=== PATIENT | female | born 1945 | race Caucasian/White ===

== ENCOUNTER 2019-08-29 11:50 | Outpatient (CLI) | payer MEDICARE, SELFPAY ==
--- NOTE | ~2019-08-29 | XR_ITS ---
EXAMINATION: [id number] DATE: 08/29/2019 12:18 INDICATION: Right chest pain. TECHNIQUE: A frontal view of the chest and 3 views of the right ribs were obtained. COMPARISON: Chest 2 views 12/24/2005 FINDINGS: The chest demonstrates clear lungs without pneumonia, pleural effusion, or pneumothorax. Th e heart size is normal. There is a total right shoulder arthroplasty. There is a suture anchor in rig ht humeral head. There are changes of anterior and posterior fusion procedures in lumbar spine. IMPRESSION: 1. No rib fracture. Reviewed, dictated and finalized at location A. IMPRESSION: 1. No rib fracture.
== END 2019-08-29 11:51 | disposition home or self-care (01) ==
LOC: ANHIMG 11:59
PROVIDERS: PCP Internal Medicine; Visit Provider Physician Assistant
DX: R07.81 Pleurodynia (principal)
CPT/HCPCS: 71101

== ENCOUNTER 2020-02-05 16:44 | Outpatient (CLI) | payer MEDICARE, SELFPAY ==
--- NOTE | ~2020-02-05 | MM_ITS ---
EXAMINATION: MM screening tegan BI w benita HISTORY: Screening mammogram TECHNIQUE: Craniocaudal and mediolateral oblique 3-D tomosynthesis images were obtained and synthetic 2-D images were generated. CAD analysis was submitted and interpreted. COMPARISON: 08/02/2018, 06/09/2017, 06/07/2016 bilateral digital screening mammogram examinations BREAST PARENCHYMAL COMPOSITION: There are scattered areas of fibroglandular density. FINDINGS: There is no evidence of suspicious mass, calcification, or architectural distortion to sugg est malignancy in either breast. There has been no suspicious interval change. IMPRESSION: 1. No mammographic evidence of malignancy. 2. Recommend routine screening mammography in one year. BI-RADS Category 1: Negative Reviewed, dictated and finalized at location B. 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
== END 2020-02-05 16:45 | disposition home or self-care (01) ==
LOC: ANHIMG 16:49
PROVIDERS: PCP Internal Medicine; Visit Provider Internal Medicine
DX: Z12.31 Encounter for screening mammogram for malignant neoplasm of breast (principal)
CPT/HCPCS: 77063; 77067

== ENCOUNTER 2021-03-18 16:31 | Outpatient (CLI) | payer MEDICARE, SELFPAY ==
--- NOTE | ~2021-03-18 | MM_ITS ---
EXAMINATION: MM screening tegan BI w benita HISTORY: Screening TECHNIQUE: Craniocaudal and mediolateral oblique 3-D tomosynthesis images were obtained and synthetic 2-D images were generated. CAD analysis was submitted and interpreted. COMPARISON: Comparison to multiple prior studies sequentially, with oldest reviewed study dated 06/04. BREAST PARENCHYMAL COMPOSITION: The breasts are heterogenously dense, which may obscure small masses FINDINGS: There is no evidence of suspicious mass, calcification, or architectural distortion to sugg est malignancy in either breast. There has been no suspicious interval change. IMPRESSION: 1. No mammographic evidence of malignancy. 2. Recommend routine screening mammography in one year. BI-RADS Category 1: Negative Reviewed, dictated and finalized at location A. ACUTE CARE
== END 2021-03-18 16:32 | disposition home or self-care (01) ==
LOC: ANHIMG 16:34
PROVIDERS: PCP Internal Medicine; Visit Provider Internal Medicine
DX: Z12.31 Encounter for screening mammogram for malignant neoplasm of breast (principal)
CPT/HCPCS: 77063; 77067

== ENCOUNTER 2022-05-18 14:12 | Outpatient (CLI) | payer MEDICARE, SELFPAY ==
--- NOTE | ~2022-05-18 | MM_ITS ---
EXAMINATION: MM screening tegan BI w benita HISTORY: Screening mammogram TECHNIQUE: Craniocaudal and mediolateral oblique 3-D tomosynthesis images were obtained and synthetic 2-D images were generated. CAD analysis was submitted and interpreted. COMPARISON: 03/18/2021, , 08/02/2018, 05/20/2017, 06/07/2016, 06/06/1999 bilateral screening ma mmogram examinations BREAST PARENCHYMAL COMPOSITION: There are scattered areas of fibroglandular density. FINDINGS: There is an approximately 4 x 5.8 mm circumscribed opacity in the anterior inner right [address] on craniocaudal projection. Diagnostic right mammogram and right breast ultrasound examination are recommended. Otherwise there is no evidence of suspicious mass, calcification, or architectural distortion to sug gest malignancy in either breast. There has been no other suspicious interval change. IMPRESSION: 1. 4 x 5.8 mm circumscribed opacity in the anterior inner right breast on craniocaudal view 2. Diagnostic right mammogram and right breast ultrasound examination are recommended BI-RADS Category 0: Incomplete: Needs additional imaging evaluation. Reviewed, dictated and finalized at location A. MANAGER IMPRESSION: 1. 4 x 5.8 mm circumscribed opacity in the anterior inner right breast on crani ocaudal view 2. Diagnostic right mammogram and right breast ultrasound examination are recom mended BI-RADS Category 0: Incomplete: Needs additional imaging evaluation.
== END 2022-05-18 14:13 | disposition home or self-care (01) ==
PROVIDERS: PCP Internal Medicine; Visit Provider Internal Medicine
DX: Z12.31 Encounter for screening mammogram for malignant neoplasm of breast (principal); R92.8 Other abnormal and inconclusive findings on diagnostic imaging of breast
CPT/HCPCS: 77063; 77067

== ENCOUNTER 2022-06-03 13:46 | Outpatient (CLI) | payer MEDICARE, SELFPAY ==
--- NOTE | ~2022-06-03 | MMUS_ITS ---
EXAMINATION: MM diagnostic tegan RT w benita, US breast RT limited HISTORY: 4 x 5 point millimeters circumscribed opacity in anterior inner right breast on craniocaudal screening view of May 18, 2022 TECHNIQUE: Additional 3-D tomosynthesis images of the right breast were performed and synthetic 2-D i mages were generated. CAD analysis was submitted and interpreted. Rolled medial and rolled lateral cr aniocaudal) views. High resolution upper inner and lower inner quadrant right breast ultrasound was p erformed. COMPARISON: Serial mammograms dating back to 06/09/2017 FINDINGS: MAMMOGRAPHIC FINDINGS: There is a faint low-density circumscribed approximate 4 x 6 mm opacity in the anterior inner mid to upper right breast. ULTRASOUND: At 2:00 3 cm from the nipple corresponding to the mammographic lesion is a circumscribed parallel hyp oechoic 7.2 x 4 x 7.9 mm lesion without internal vascularity or posterior shadowing. This appears mos t likely benign. At 4:00 1 cm from the nipple there is a 3.4 mm cyst At 12:00 1 cm from nipple there is a 2.3 mm cyst. No suspicious mass or shadowing of the upper and lower inner quadrants. IMPRESSION: 1. Probably benign 4 x 6 mm solid mass at 2:00 3 cm from nipple 2. 6 month diagnostic right mammogram and targeted right breast ultrasound follow-up are recommended BI-RADS category 3, probably benign findings. Reviewed, dictated and finalized at location A. IMPRESSION: 1. Probably benign 4 x 6 mm solid mass at 2:00 3 cm from nipple 2. 6 month diagnostic right mammogram and targeted right breast ultrasound foll ow-up are recommended BI-RADS category 3, probably benign findings.
== END 2022-06-03 13:47 | disposition home or self-care (01) ==
PROVIDERS: PCP Internal Medicine; Visit Provider Physician Assistant
DX: R92.8 Other abnormal and inconclusive findings on diagnostic imaging of breast (principal)
CPT/HCPCS: 76642; 77061; 77065; G0279

== ENCOUNTER 2022-10-25 14:16 | Outpatient (CLI) | payer MEDICARE, SELFPAY ==
[2022-10-25 15:28] LABS: Appearance Urine Cloudy (Clear); Bacteria Urine 4+ /hpf; Bilirubin Urine Negative (Negative); Blood Urine Negative (Negative); Color Urine Yellow (Yellow); Glucose Urine UA Negative (Negative); Ketones Urine Negative (Negative); Leukocyte Esterase Ur 2+ LEU/UL (Negative); Nitrate Urine Positive (Negative); Non Pathogenic Casts 0-2; Protein Urine Negative (Negative); RBC Urine 0-2 /hpf (0-2); Specific Grav Ur 1.014 (1.001-1.035); Squamous Epithelial Cell Urine None seen /hpf (Few); Urobilinogen Urine 0.2 mg/dL (<2.0); WBC Urine 51-100 /hpf; pH Urine 5.5 (5.0-9.0)
[2022-10-25 15:32] LABS: Add Urine Microscopic? YES
== END 2022-10-25 14:17 | disposition home or self-care (01) ==
LOC: ANHLAB 14:18
PROVIDERS: PCP Internal Medicine; Visit Provider Internal Medicine
DX: R30.0 Dysuria (principal)
CPT/HCPCS: 81001; 87077; 87086; 87186

== ENCOUNTER 2023-01-12 12:39 | Outpatient (CLI) | payer MEDICARE, SELFPAY ==
--- NOTE | ~2023-01-12 | MMUS_ITS ---
EXAMINATION: MM diagnostic tegan RT w benita, US breast RT limited HISTORY: TECHNIQUE: Additional 3-D tomosynthesis images of were performed and synthetic 2-D images were genera colten. CAD analysis was submitted and interpreted. High resolution breast ultrasound was performed. COMPARISON: 06/03/2022 diagnostic right mammogram and limited right breast ultrasound 05/18/2022, 03/18/2021, 02/05/2020 bilateral screening mammogram examinations FINDINGS: MAMMOGRAPHIC FINDINGS: Approximately 5 x 7.5 mm mass is noted in the anterior inner mid left breast. No reproducible mass is detected otherwise. ULTRASOUND: 1:00 2 cm from nipple: There is a parallel circumscribed hypoechoic mildly irregular solid mass with internal vascularity, measuring approximately 4 x 7.4 mm dimension. No posterior shadowing is noted. Ultrasound-guided biopsy is recommended considering the mildly irregular margins and internal vascula rity. No other suspicious mass or shadowing of the right breast is detected. IMPRESSION: 1. Mildly irregular solid 4 x 7.4 mm mass at 1:00 2 cm from nipple 2. Ultrasound-guided biopsy of 1:00 lesion is recommended BI-RADS category 4, suspicious findings. Dr. Hanna telephoned the report and ultrasound-guided biopsy recommendation on 01/12/2023 at 1455 hour s to Bobby Benito. Reviewed, dictated and finalized at location A. IMPRESSION: 1. Mildly irregular solid 4 x 7.4 mm mass at 1:00 2 cm from nipple 2. Ultrasound-guided biopsy of 1:00 lesion is recommended BI-RADS category 4, suspicious findings. Dr. Hanna telephoned the report and ultrasound-guided biopsy recommendation on at 1455 hours to Bobby Benito. IMPRESSION: 1. Mildly irregular solid 4 x 7.4 mm mass at 1:00 2 cm from nipple 2. Ultrasound-guided biopsy of 1:00 lesion is recommended BI-RADS category 4, suspicious findings. Dr. Hanna telephoned the report and ultrasound-guided biopsy recommendation on at 1455 hours to Jigna Hatchery Helper.
== END 2023-01-12 12:40 | disposition home or self-care (01) ==
LOC: ANHIMG 12:40
PROVIDERS: PCP Internal Medicine; Visit Provider Physician Assistant
DX: R92.8 Other abnormal and inconclusive findings on diagnostic imaging of breast (principal)
CPT/HCPCS: 76642; 77061; 77065; G0279

== ENCOUNTER 2023-01-25 09:58 | Outpatient (CLI) | payer MEDICARE, SELFPAY ==
--- NOTE | ~2023-01-25 | MMUS_ITS ---
MM post biopsy invasive RT, US breast biopsy RT w image EXAMINATION: US GUIDED NEEDLE BIOPSY WITH VACUUM ASSISTANCE DATE: 01/25/2023 11:50 PHARMACIST IN CHARGE INDICATION: Right breast mass seen on prior examination. Ultrasound-guided core biopsy is requested to evaluate for malignancy. TECHNIQUE AND FINDINGS: The risks and potential benefits of the procedure were discussed with the patient, and written inform ed consent was obtained. After sterile preparation of the right breast, 1% lidocaine was utilized fo r local anesthesia. 1% lidocaine with epinephrine was used for deep anesthesia. A 10G vacuum-assisted biopsy gun needle was advanced through to the outer edge of the region of inter est from a medial approach utilizing sonographic guidance. A total of 4 tissue core samples were obt ained through the lesion. An Inrad tissue marker clip was then placed at the biopsy site. Hemostasis was achieved. The patient tolerated procedure well and there was no evidence of immediate complication. The patien t was given verbal instructions partly is from the department. Right breast mammograms to document t issue marker clip placement. The tissue samples were submitted to surgical pathology for histologic a nalysis. IMPRESSION: 1. Successful ultrasound-guided vacuum-assisted biopsy of right breast mass with tissue marker place ment. Please refer to pathology report for histologic analysis. Reviewed, dictated and finalized at location A. MACIST IN CHARGE IMPRESSION: 1. Successful ultrasound-guided vacuum-assisted biopsy of right breast mass wi th tissue marker placement. Please refer to pathology report for histologic yulia lysis.
== END 2023-01-25 09:59 | disposition home or self-care (01) ==
PROVIDERS: PCP Internal Medicine; Visit Provider Physician Assistant
DX: N63.10 Unspecified lump in the right breast, unspecified quadrant (principal); N62 Hypertrophy of breast; R92.8 Other abnormal and inconclusive findings on diagnostic imaging of breast
CPT/HCPCS: 19083; 88305; 88342; A4648

== ENCOUNTER 2023-11-02 15:32 | Outpatient (CLI) | payer MEDICARE, SELFPAY ==
--- NOTE | ~2023-11-02 | XR_ITS ---
EXAMINATION: XR foot RT min 3V, XR foot LT min 3V DATE: 11/02/2023 15:48 INDICATION: Bilateral foot pain and aching TECHNIQUE: 1. Dorsoplantar, two oblique and lateral views of the left foot were obtained. 2. Dorsoplantar, two oblique and lateral views of the right foot were obtained. COMPARISON: None. FINDINGS: Old healed fractures versus realignment osteotomies at the necks of the bilateral fifth metatarsals. There've also been osteotomies likely for hammertoe corrections at the heads of the left third and fo urth and right fourth and fifth proximal phalanges. 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 Pin fixation at the neck of the right fourth metatarsal. Second in the postop erative change in alignment is normal at the bilateral feet. No fracture. Mild polyarticular osteoart hritis at multiple tarsal metatarsal, metatarsophalangeal and interphalangeal joints. Small bilateral Achilles and plantar calcaneal spurs. Soft tissues are unremarkable. IMPRESSION: 1. Postoperative and mild degenerative skeletal changes in both feet as detailed above. No acute osse ous abnormality. Reviewed, dictated and finalized at location A. IMPRESSION: 1. Postoperative and mild degenerative skeletal changes in both feet as detaile d above. No acute osseous abnormality.
== END 2023-11-02 15:33 | disposition home or self-care (01) ==
PROVIDERS: PCP Internal Medicine; Visit Provider Internal Medicine
DX: M19.071 Primary osteoarthritis, right ankle and foot (principal); M19.072 Primary osteoarthritis, left ankle and foot
CPT/HCPCS: 73630

== ENCOUNTER 2024-01-16 14:28 | Outpatient (CLI) | payer MEDICARE, SELFPAY ==
--- NOTE | ~2024-01-16 | DEXA_ITS ---
Bone Density Report Name: TIMO TOVAR Age: 79 Sex: Female Ethnicity: White Date of : 1945 Indication: postmenopausal; screening for osteoporosis; height loss; Referring Provider: ADAN LIPSCOMB Study: Bone densitometry was performed. Exam Date: January 16, 2024 Accession number: [id number] Bone Density: Region BMD T-score Z-score Classification Femoral Neck (Left) 0.734 -1.0 1.3 Normal Total Hip (Left) 0.911 -0.3 1.8 Normal Femoral Neck (Right) 0.742 -1.0 1.3 Normal Total Hip (Right) 0.933 -0.1 2.0 Normal Total Hip Mean 0.922 -0.2 1.9 Normal World Health Organization criteria for BMD impression classify patients as: Normal (T-score at or above -1.0), Osteopenia (T-score between -1.0 and -2.5), or Osteoporosis (T-score at or below -2.5). 10-year Fracture Risk: FRAX not reported because: All T-scores for Spine Total, Hip Total, Femoral Neck at or above -1.0 Clinical Information Provided by Patient: Has used the following medications: Vitamin D Patient maximum height was 64.0 No regular weight bearing exercise Onset of menses at age 10 Number of children 1 Impression: The patient has normal bone mass. Discussion: BONE DENSITY IS ABOVE THE MINIMUM DESIRABLE LEVEL AT ALL SKELETAL SITES TESTED. This patient?s bone mineral density is above the minimum desirable level (T-score -1.0 or better) at all sites measured. The patient should follow a healthful lifestyle (good nutrition with adequate calcium and vitamin D, and appropriate weight-bearing exercise). Follow-Up: Consider repeating this study in 5 years or sooner if there is some new clinical indication. Reported by: MAGGY on 01/16/2024 3:06:00 PM. Reviewed, dictated and finalized at location [facility]
== END 2024-01-16 14:29 | disposition home or self-care (01) ==
LOC: ANHIMG 14:29
PROVIDERS: PCP Internal Medicine; Visit Provider Internal Medicine
DX: M81.0 Age-related osteoporosis without current pathological fracture (principal)
CPT/HCPCS: 77080

== ENCOUNTER 2024-01-24 14:49 | Outpatient (CLI) | payer MEDICARE, SELFPAY ==
--- NOTE | ~2024-01-24 | MM_ITS ---
EXAMINATION: MM screening tegan BI w benita HISTORY: Screening TECHNIQUE: Craniocaudal and mediolateral oblique 3-D tomosynthesis images were obtained and synthetic 2-D images were generated. CAD analysis was submitted and interpreted. COMPARISON: Comparison to multiple prior studies sequentially, with oldest reviewed study dated 01/19. BREAST PARENCHYMAL COMPOSITION: Not dense: There are scattered areas of fibroglandular density. FINDINGS: There is no evidence of suspicious mass, calcification, or architectural distortion to sugg est malignancy in either breast. There has been no suspicious interval change. IMPRESSION: 1. No mammographic evidence of malignancy. 2. Recommend routine screening mammography in one year. BI-RADS Category 1: Negative Reviewed, dictated and finalized at location B. 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
== END 2024-01-24 14:50 | disposition home or self-care (01) ==
LOC: ANHIMG 14:50
PROVIDERS: PCP Internal Medicine; Visit Provider Internal Medicine
DX: Z12.31 Encounter for screening mammogram for malignant neoplasm of breast (principal)
CPT/HCPCS: 77063; 77067